=== PATIENT | male | born 1980 | race Caucasian/White ===

== ENCOUNTER 2017-12-17 16:51 | Emergency (ER) | payer OTHER ==
[~2017-12-17] VITALS: Ht 182.9 cm; Wt 68.0 kg
[~2017-12-17 16:51] MED LIST: PREDNISONE20 M1 PO
[2017-12-17 16:56] VITALS: BP 151/95
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
--- NOTE | 2017-12-17 19:30 | RADIOLOGY REPORT ---
EXAMINATION: XR CERVICAL SPINE CLINICAL INFORMATION: Trauma. COMPARISON: None TECHNIQUE: 3 views of the cervical spine. FINDINGS: There is a mild reversal of the normal cervical lordosis. There is mild to moderate disc space narrowing and endplate spurring at C3-C4 and milder loss of disc height with endplate spurring from the C4-C7 levels. No compression fractures or subluxations are seen. The prevertebral soft tissues are normal. The atlantoaxial articulation is maintained. The imaged lung apices are clear. IMPRESSION: Mild to moderate spondylosis at C3-C4 and mild degenerative changes elsewhere in the cervical spine with a reversal of the normal cervical lordosis.
[2017-12-17] MEDS ORDERED: CYCLOBENZAPRINE10 M1 PO (19:39)
[2017-12-17] MEDS ORDERED: IBUPROFEN800 M1 PO (19:39)
== END 2017-12-17 19:39 ==
LOC: ERH 16:51
DX: S16.1XXA Strain of muscle, fascia and tendon at neck level, initial encounter (principal); V49.40XA Driver injured in collision with unspecified motor vehicles in traffic accident, initial encounter; Y92.9 Unspecified place or not applicable; Y93.9 Activity, unspecified
CPT/HCPCS: 72050